=== PATIENT | male | born 1965 | race Two or more races ===

== ENCOUNTER 2018-01-25 05:19 | Day surgery (SDC) | payer MEDICAID ==
[2018-01-21 15:45] LABS: BASOPHILS % (AUTO) 0.2 % (0-1); EOSINOPHILS # (AUTO) 0.2 X10'3 (0-0.9); EOSINOPHILS % (AUTO) 2.5 % (0-6); LYMPHOCYTES # (AUTO) 1.8 X10'3 (1.1-4.8); LYMPHOCYTES % (AUTO) 27.7 % (21-51); MEAN CORPUSCULAR HEMOGLOBIN 31.5 PG (27.0-31.0); MEAN CORPUSCULAR HGB CONC 33.9 % (33.0-36.5); MEAN CORPUSCULAR VOLUME 92.8 FL (78-98); MEAN PLATELET VOLUME 7.9 FL (7.4-10.4); MONOCYTES # (AUTO) 0.4 X10'3 (0-0.9); MONOCYTES % (AUTO) 6.9 % (2-12); NEUTROPHILS % (AUTO) 62.7 % (42-75); PRE OP HEMATOCRIT 44.5 % (42.0-52.0); PRE OP HEMOGLOBIN 15.1 g/dL (14.0-17.9); PRE OP PLATELET COUNT 200 X10'3 (140-440); RED BLOOD COUNT 4.79 X10'6 (4.70-6.10); RED CELL DISTRIBUTION WIDTH 14.5 % (11.5-14.5)
[2018-01-21 16:00] LABS: ALBUMIN 3.6 G/DL (3.4-5.0); ALKALINE PHOSPHATASE 75 IU/L (46-116); BLOOD UREA NITROGEN 17 MG/DL (7-18); BUN/CREATININE RATIO 14.5 (5.4-32.0); CALCIUM 8.7 MG/DL (8.5-10.1); CHLORIDE 105 MMOL/L (99-107); CREATININE 1.17 MG/DL (0.60-1.10); PRE OP ANION GAP 8 (8-16); PRE OP BILIRUB, TOTAL 0.3 MG/DL (0.0-1.0); PRE OP GLUCOSE 128 MG/DL (70-104); PRE OP POTASSIUM 3.7 MMOL/L (3.4-5.1); PRE OP SODIUM 139 MMOL/L (135-145); TOTAL CARBON DIOXIDE 26.2 MMOL/L (24-32); TOTAL PROTEIN 7.3 G/DL (6.4-8.2); eGFR 65 ML/MIN
[2018-01-21 16:03] LABS: PRE OP ALT 121 U/L (30-65); PRE OP AST 117 U/L (10-37)
[2018-01-25] VITALS (16 sets, daily range): BP systolic 112–165; BP diastolic 54–113
[~2018-01-25] VITALS: Ht 180.3 cm; Wt 140.2 kg
[~2018-01-25 05:19] MED LIST: BUSP15TA14 PO; CARV25TA PO; FLUO20CA39 PO; FURO40TA4 PO; LISI-600 PO; POTA20TA19 PO; TRAZ-143 PO; ringers solution, lacted 1,000 ML IV SCH
[2018-01-25] MEDS ORDERED: DOCUMENT DATE & TIME OF BETA-BLOCKER PO ONE (05:30)
[2018-01-25] MEDS ORDERED: cefazolin/dext.iso 2gm/50ml 50 ML IV ONE (05:30)
[2018-01-25] MEDS ORDERED: famotidine 20mg tablet PO ONE (05:30)
[2018-01-25] MEDS ORDERED: LIDOcaine 1% (10mg/ml) 2ml vial ONE (05:54)
[2018-01-25] MEDS ORDERED: BUPIVAcaine/PF 2.5 mg/ml (0.25%) 30ml vial ONE ×2 (07:04→07:25)
[2018-01-25 07:09] LABS: ALANINE AMINOTRANSFERASE 82 U/L (12-78); ALBUMIN 3.6 G/DL (3.4-5.0); ALBUMIN/GLOBULIN RATIO 0.9 (1.1-1.5); ALKALINE PHOSPHATASE 72 IU/L (46-116); ANION GAP 9 (8-16); ASPARTATE AMINO TRANSFERASE 32 U/L (10-37); BILIRUBIN,TOTAL 0.6 MG/DL (0.1-1.0); BLOOD UREA NITROGEN 23 MG/DL (7-18); BUN/CREATININE RATIO 21.9 (5.4-32.0); CHLORIDE 104 MMOL/L (99-107); CREATININE 1.05 MG/DL (0.60-1.10); GLUCOSE 97 MG/DL (70-104); POTASSIUM 3.9 MMOL/L (3.5-5.1); SODIUM 139 MMOL/L (135-145); TOTAL PROTEIN 7.4 G/DL (6.4-8.2); eGFR 74 ML/MIN
[2018-01-25] MEDS ORDERED: BUPIVAcaine 0.5% inj/PF 30 ml vial ONE (07:25)
[2018-01-25] MEDS ORDERED: fentaNYL/PF 50MCG/1 ML 2ML syringe ONE ×4 (07:26→11:26)
[2018-01-25] MEDS ORDERED: midazolam 2 mg/2 ml injection ONE ×2 (07:26)
[2018-01-25] MEDS ORDERED: sevoflurane 250ml liquid IH ONE (07:31)
[2018-01-25] MEDS ORDERED: epiNEPHrine 1 mg/ml inj ONE (07:56)
[2018-01-25] MEDS ORDERED: propofol inj 20 ML IV ONE (07:56)
[2018-01-25] MEDS ORDERED: rocuronium 10mg/ml inj IV ONE (07:56)
[2018-01-25] MEDS ORDERED: LIDOcaine 2% (20mg/ml) 5ml vial ONE (07:56)
[2018-01-25] MEDS ORDERED: dexamethasone sod phosphate 4mg/ml inj. ONE (07:56)
[2018-01-25] MEDS ORDERED: phenylephrine 10mg/ml inj IV ONE (08:00)
[2018-01-25] MEDS ORDERED: ringers solution, lacted 1,000 ML IV SCH (08:49)
[2018-01-25] MEDS ORDERED: proCHLORperazine 10 MG/2 ml inj IV PRN (08:50)
[2018-01-25] MEDS ORDERED: ondansetron/PF 4mg/2ml inj IV PRN ×2 (08:50→11:55)
[2018-01-25] MEDS ORDERED: morphine 4 MG/ML inj SYRINge IV PRN ×4 (08:50→10:46)
[2018-01-25] MEDS ORDERED: meperidine/PF 50mg/ml syringe IV PRN ×2 (08:50)
[2018-01-25] MEDS ORDERED: morphine 10mg/ml inj. IV ONE (09:20)
[2018-01-25] MEDS ORDERED: ondansetron/PF 4mg/2ml inj ONE (09:48)
[2018-01-25] MEDS ORDERED: ePHEDrine 50MG/ML INJ. ONE (09:48)
[2018-01-25] MEDS ORDERED: neostigmine methylsulfate 1 MG/ML 10ml vial ONE (09:48)
[2018-01-25] MEDS ORDERED: glycopyrrolate 0.2mg/ml inj ONE (09:48)
[2018-01-25] MEDS ORDERED: HYDROcodone/acetaminophen 10/325mg tab PO PRN ×3 (10:20→11:55)
[2018-01-25] MEDS: meperidine/PF 50mg/ml syringe IV PRN ×2 (10:23→11:15)
[2018-01-25] MEDS ORDERED: morphine 2 MG/ML inj. syringe IV PRN ×4 (10:41→10:59)
[2018-01-25] MEDS ORDERED: morphine 10mg/ml inj. ONE (10:47)
[2018-01-25] MEDS ORDERED: ketorolac tromethamine 15mg/ml inj. IV ONE (10:55)
[2018-01-25] MEDS ORDERED: fentaNYL/PF 50MCG/1 ML 2ML syringe IV PRN ×2 (11:25)
[2018-01-25] MEDS ORDERED: ketorolac tromethamine 15mg/ml inj. IV PRN (11:55)
[2018-01-25] MEDS ORDERED: bisacodyl 10mg suppository rectal RC PRN (11:55)
[2018-01-25] MEDS ORDERED: morphine/NS 5 mg/ml CADD 50 ML IV SCH (11:55)
[2018-01-25] MEDS ORDERED: CADD PCA waste documentation MC PRN (11:55)
[2018-01-25] MEDS ORDERED: diphenhydrAMINE 25mg capsule PO PRN ×2 (11:55)
[2018-01-25] MEDS ORDERED: acetaminophen 1,000mg/100ml IV 100 ML IV ONE (11:55)
[2018-01-25] MEDS ORDERED: magnesium hydroxide 30ml (MOM) UD suspension PO PRN (11:55)
[2018-01-25] MEDS ORDERED: naloxone 0.4 mg/ml inj IV PRN (11:55)
[2018-01-25] MEDS ORDERED: acetaminophen 325mg tablet PO PRN (11:55)
[2018-01-25] MEDS ORDERED: TRAZ-146 PO (12:12)
[2018-01-25] MEDS ORDERED: sennosides 8.6mg tablet PO SCH (21:00)
== END 2018-01-25 12:45 | disposition home or self-care (01) ==
LOC: PAS 05:19
PROVIDERS: ATTEND Orthopaedic Surgery
DX: M75.122 Complete rotator cuff tear or rupture of left shoulder, not specified as traumatic (principal); M75.22 Bicipital tendinitis, left shoulder; M19.012 Primary osteoarthritis, left shoulder; M65.812 Other synovitis and tenosynovitis, left shoulder; Z79.899 Other long term (current) drug therapy; Z98.890 Other specified postprocedural states
CPT/HCPCS: 29824; 29826; 29827; 29828; 36415; 80053; 85025; A6449; C1713; J0131; J0171; J0690; J1100; J1885; J2001; J2175; J2250; J2270; J2370; J2405; J2704; J2710; J3010; J3490; J7030; J7120; A7000

== ENCOUNTER 2018-07-12 23:46 | Emergency (ER) | payer MEDICAID ==
[~2018-07-12] VITALS: Ht 180.3 cm; Wt 136.0 kg
[~2018-07-12 23:46] MED LIST changes: -TRAZ-143 PO; +TRAZ-219 PO; -ringers solution, lacted 1,000 ML IV SCH
[2018-07-12 23:50] VITALS: BP 146/84
[2018-07-13] MEDS ORDERED: ibuprofen tablet 400 MG TABLET PO ONE (03:20)
[2018-07-13] MEDS ORDERED: IBUP-1986 PO (03:34)
[2018-07-13] MEDS ORDERED: HYDR-569 PO (03:34)
== END 2018-07-13 03:38 | disposition home or self-care (01) ==
LOC: ER 23:48
DX: S90.212A Contusion of left great toe with damage to nail, initial encounter (principal); S90.422A Blister (nonthermal), left great toe, initial encounter; E66.01 Morbid (severe) obesity due to excess calories; Z68.41 Body mass index [BMI] 40.0-44.9, adult; W18.39XA Other fall on same level, initial encounter; Y93.89 Activity, other specified; Y92.69 Other specified industrial and construction area as the place of occurrence of the external cause; Y99.8 Other external cause status
CPT/HCPCS: 82948; 99283

== ENCOUNTER 2020-01-07 11:49 | Inpatient (IN) | payer MEDICAID ==
[~2020-01-07] VITALS: Ht 180.3 cm; Wt 190.4 kg
[~2020-01-07 11:49] MED LIST changes: -BUSP15TA14 PO; +BUSP15TA8 PO; +HYDR-4383 PO; +IBUP-1986 PO; -TRAZ-219 PO
[2020-01-07 12:21] LABS: BASOPHILS # (AUTO) 0.1 X10'3 (0-0.2); BASOPHILS % (AUTO) 0.8 % (0-1); EOSINOPHILS # (AUTO) 0.1 X10'3 (0-0.9); EOSINOPHILS % (AUTO) 0.8 % (0-6); HEMATOCRIT 47.7 % (42.0-52.0); HEMOGLOBIN 16.1 g/dl (14.0-17.9); LYMPHOCYTES # (AUTO) 1.6 X10'3 (1.1-4.8); LYMPHOCYTES % (AUTO) 22.4 % (21-51); MEAN CORPUSCULAR HEMOGLOBIN 31.1 PG (27.0-31.0); MEAN CORPUSCULAR HGB CONC 33.8 g/dL (33.0-36.5); MEAN CORPUSCULAR VOLUME 91.9 FL (78-98); MEAN PLATELET VOLUME 8.1 FL (7.4-10.4); MONOCYTES # (AUTO) 0.5 X10'3 (0-0.9); MONOCYTES % (AUTO) 6.8 % (2-12); NEUTROPHILS # (AUTO) 5.1 X10'3 (1.8-7.7); NEUTROPHILS % (AUTO) 69.2 % (42-75); PLATELET COUNT 217 X10'3 (140-440); RED BLOOD COUNT 5.19 X10'6 (4.70-6.10); RED CELL DISTRIBUTION WIDTH 14.1 % (11.5-14.5); WHITE BLOOD COUNT 7.3 X10'3 (4.5-11.0)
[2020-01-07 12:36] LABS: ALANINE AMINOTRANSFERASE 60 U/L (12-78); ALKALINE PHOSPHATASE 75 IU/L (46-116); ANION GAP 11 (8-16); BILIRUBIN,TOTAL 0.5 MG/DL (0.1-1.0); BLOOD UREA NITROGEN 18 MG/DL (7-18); BUN/CREATININE RATIO 16.8 (5.4-32.0); CALCIUM 8.8 MG/DL (8.5-10.1); CHLORIDE 105 MMOL/L (99-107); CREATININE 1.07 MG/DL (0.60-1.10); GLUCOSE 99 MG/DL (70-104); SODIUM 140 MMOL/L (135-145); TOTAL CARBON DIOXIDE 23.6 MMOL/L (24-32); eGFR 72 ML/MIN
[2020-01-07 12:39] LABS: ASPARTATE AMINO TRANSFERASE 36 U/L (10-37); POTASSIUM 4.1 MMOL/L (3.5-5.1)
[2020-01-07] MEDS ORDERED: DICL75TA5 PO (15:28)
[2020-01-07] MEDS ORDERED: TRAZ-256 PO (15:28)
[2020-01-07 16:39] LABS: D-DIMER 0.33 MG/L FEU (0-0.50)
[2020-01-07] MEDS ORDERED: HYDROcodone/acetaminophen 5mg/325mg tablet PO PRN (17:05)
[2020-01-07] MEDS ORDERED: metoprolol tartrate 1mg/ml inj IV PRN (17:05)
[2020-01-07] MEDS ORDERED: nitroGLYCERIN 0.4mg SUBLingual tab SL PRN (17:05)
[2020-01-07] MEDS ORDERED: magnesium 4gm in 100ml NS 100 ML IV PRN (17:05)
[2020-01-07] MEDS ORDERED: morphine 2 MG/ML inj. syringe IV PRN ×2 (17:05)
[2020-01-07] MEDS ORDERED: magnesium 2GM in 50ml NS 50 ML IV PRN (17:05)
[2020-01-07] MEDS ORDERED: potassium Cl 20 mEq SR tablet PO PRN ×2 (17:05)
[2020-01-07] MEDS ORDERED: acetaminophen 325mg tablet PO PRN ×2 (17:05)
[2020-01-07] MEDS ORDERED: HYDROcodone/acetaminophen 10/325mg tab PO PRN (17:05)
[2020-01-07] MEDS ORDERED: ondansetron/PF 4mg/2ml inj IV PRN (17:05)
[2020-01-07] MEDS ORDERED: regadenoson 0.4mg/5ml syringe IV PRN (17:05)
[2020-01-07] MEDS ORDERED: aminophylline 250mg/10ml inj. IV PRN (17:05)
[2020-01-07] MEDS ORDERED: potassium CL 10mEq/100ml bag 100 ML IV PRN ×2 (17:05)
[2020-01-07] MEDS ORDERED: magnesium Cl slow-release 64mg tablet PO PRN (17:05)
[2020-01-07 17:16] LABS: URINE AMPHETAMINE SCREEN NEGATIVE (Neg); URINE BARBITUATE SCREEN NEGATIVE (Neg); URINE BENZODIAZEPINES SCREEN NEGATIVE (Neg); URINE CANNABINOID SCREEN NEGATIVE (Neg); URINE COCAINE SCREEN NEGATIVE (Neg); URINE METHADONE SCREEN NEGATIVE (Neg); URINE OPIATE SCREEN NEGATIVE (Neg); URINE PHENCYCLIDINE SCREEN NEGATIVE (Neg)
[2020-01-07] MEDS: normal saline 1000ml 1,000 ML IV SCH (18:02)
[2020-01-07] MEDS ORDERED: NITR0.4T48 SL (18:19)
[2020-01-07] MEDS: docusate sod 100mg capsule PO SCH (20:00)
[2020-01-07] MEDS: K and/or MAG REPLACEMENT MC SCH (20:00)
[2020-01-07] MEDS: heparin, porcine 5000 units/ml vial SQ SCH (20:00)
[2020-01-07] MEDS: carVEDilol 12.5mg tablet PO SCH (20:42)
[2020-01-07] MEDS: pantoprazole 40mg Tablet.DR PO SCH (20:42)
[2020-01-07] MEDS: lisinopril 20mg tablet PO SCH (20:43)
--- NOTE | 2020-01-07 20:51 | NUR ---
Patient in room ED 13. I have received report from Rere BENAVIDEZ and had the opportunity to ask questions and assume patient care.
[2020-01-07 20:54] VITALS: BP 145/85
[2020-01-07] MEDS ORDERED: temazepam 15mg capsule PO PRN (21:00)
[2020-01-07] MEDS: traZODone 50mg tablet PO SCH (21:07)
[2020-01-07 22:30] VITALS: BP 101/58
[2020-01-08] VITALS (14 sets, daily range): BP systolic 115–173; BP diastolic 59–99
[2020-01-08] MEDS: normal saline 1000ml 1,000 ML IV SCH ×3 (03:07→21:30)
--- NOTE | 2020-01-08 06:04 | NUR ---
Problems reprioritized. Patient report given, questions answered & plan of care reviewed with Natalie BENAVIDEZ.
--- NOTE | 2020-01-08 06:04 | NUR ---
Patient in room PCU 3012. I have received report from PRAMOD Mcdonnell and had the opportunity to ask questions and assume patient care. Patient is lying on his right side sleeping at this time with chest rise and fall present. Will continue to monitor.
[2020-01-08 06:11] LABS: BASOPHILS % (AUTO) 0.5 % (0-1); EOSINOPHILS # (AUTO) 0.1 X10'3 (0-0.9); EOSINOPHILS % (AUTO) 1.2 % (0-6); HEMATOCRIT 44.8 % (42.0-52.0); HEMOGLOBIN 15.4 g/dl (14.0-17.9); LYMPHOCYTES # (AUTO) 1.6 X10'3 (1.1-4.8); LYMPHOCYTES % (AUTO) 24.8 % (21-51); MEAN CORPUSCULAR HEMOGLOBIN 31.4 PG (27.0-31.0); MEAN CORPUSCULAR HGB CONC 34.5 g/dL (33.0-36.5); MEAN CORPUSCULAR VOLUME 91.3 FL (78-98); MEAN PLATELET VOLUME 8.3 FL (7.4-10.4); MONOCYTES # (AUTO) 0.5 X10'3 (0-0.9); MONOCYTES % (AUTO) 7.6 % (2-12); NEUTROPHILS # (AUTO) 4.1 X10'3 (1.8-7.7); NEUTROPHILS % (AUTO) 65.9 % (42-75); PLATELET COUNT 192 X10'3 (140-440); RED BLOOD COUNT 4.91 X10'6 (4.70-6.10); RED CELL DISTRIBUTION WIDTH 14.1 % (11.5-14.5); WHITE BLOOD COUNT 6.3 X10'3 (4.5-11.0)
[2020-01-08 06:18] LABS: ALANINE AMINOTRANSFERASE 51 U/L (12-78); ALBUMIN 3.5 G/DL (3.4-5.0); ALKALINE PHOSPHATASE 67 IU/L (46-116); ANION GAP 10 (8-16); ASPARTATE AMINO TRANSFERASE 25 U/L (10-37); BILIRUBIN,TOTAL 0.6 MG/DL (0.1-1.0); BLOOD UREA NITROGEN 20 MG/DL (7-18); BUN/CREATININE RATIO 21.3 (5.4-32.0); CALCIUM 8.4 MG/DL (8.5-10.1); CHLORIDE 107 MMOL/L (99-107); CHOL/HDL RATIO 5.4 (0.00-4.99); CHOLESTEROL 179 MG/DL (0-200); CREATININE 0.94 MG/DL (0.60-1.10); GLUCOSE 109 MG/DL (70-104); HDL CHOLESTEROL 33 MG/DL (35-60); LDL CHOLESTEROL 132 MG/DL (50-100); MAGNESIUM 1.9 MG/DL (1.5-2.4); POTASSIUM 3.7 MMOL/L (3.5-5.1); SODIUM 142 MMOL/L (135-145); TOTAL CARBON DIOXIDE 25.3 MMOL/L (24-32); TOTAL PROTEIN 7.1 G/DL (6.4-8.2); TRIGLYCERIDES 84 MG/DL (20-135); eGFR 84 ML/MIN
[2020-01-08] MEDS: lisinopril 20mg tablet PO SCH ×2 (07:19→19:26)
[2020-01-08] MEDS: FLUoxetine 20mg capsule PO SCH (07:19)
[2020-01-08] MEDS: pantoprazole 40mg Tablet.DR PO SCH ×2 (07:19→19:26)
[2020-01-08] MEDS: carVEDilol 12.5mg tablet PO SCH ×2 (07:20→19:26)
[2020-01-08] MEDS: heparin, porcine 5000 units/ml vial SQ SCH ×2 (08:00→19:28)
[2020-01-08] MEDS: K and/or MAG REPLACEMENT MC SCH ×2 (08:00→19:28)
[2020-01-08] MEDS: docusate sod 100mg capsule PO SCH ×2 (08:00→19:28)
--- NOTE | 2020-01-08 11:00 | NUR ---
Patient is down in nuc med therefore his v/s were not taken.
--- NOTE | 2020-01-08 18:30 | NUR ---
Patient in room PCU 3012. I have received report from KEVYN BENAVIDEZ and had the opportunity to ask questions and assume patient care.
[2020-01-08] MEDS: traZODone 50mg tablet PO SCH (20:05)
[2020-01-08] MEDS ORDERED: PANT40TA4 PO (22:26)
--- NOTE | 2020-01-08 22:33 | NUR ---
Dr. Godinez ordered to DC tele and patient will be discharged in the morning.
--- NOTE | 2020-01-08 22:34 | NUR ---
patient refused 0200 vitals
--- NOTE | 2020-01-08 22:36 | NUR ---
Patient requested to leave in the morning. Tele DC'd no 0200 vitals, fluids DC'd
--- NOTE | 2020-01-09 05:58 | NUR ---
Problems reprioritized. Patient report given, questions answered & plan of care reviewed with Ricarda BENAVIDEZ.
[2020-01-09 06:00] VITALS: BP 156/98
[2020-01-09 06:22] LABS: BASOPHILS % (AUTO) 0.4 % (0-1); EOSINOPHILS # (AUTO) 0.1 X10'3 (0-0.9); EOSINOPHILS % (AUTO) 1.6 % (0-6); HEMATOCRIT 47.1 % (42.0-52.0); HEMOGLOBIN 15.9 g/dl (14.0-17.9); LYMPHOCYTES # (AUTO) 1.4 X10'3 (1.1-4.8); LYMPHOCYTES % (AUTO) 22.5 % (21-51); MEAN CORPUSCULAR HEMOGLOBIN 31.1 PG (27.0-31.0); MEAN CORPUSCULAR HGB CONC 33.6 g/dL (33.0-36.5); MEAN CORPUSCULAR VOLUME 92.4 FL (78-98); MEAN PLATELET VOLUME 8.1 FL (7.4-10.4); MONOCYTES # (AUTO) 0.6 X10'3 (0-0.9); NEUTROPHILS # (AUTO) 4.1 X10'3 (1.8-7.7); NEUTROPHILS % (AUTO) 66.5 % (42-75); PLATELET COUNT 193 X10'3 (140-440); RED CELL DISTRIBUTION WIDTH 14.1 % (11.5-14.5); WHITE BLOOD COUNT 6.2 X10'3 (4.5-11.0)
[2020-01-09 06:23] LABS: ALANINE AMINOTRANSFERASE 47 U/L (12-78); ALBUMIN 3.7 G/DL (3.4-5.0); ALKALINE PHOSPHATASE 68 IU/L (46-116); ANION GAP 6 (8-16); ASPARTATE AMINO TRANSFERASE 21 U/L (10-37); BILIRUBIN,TOTAL 0.6 MG/DL (0.1-1.0); BLOOD UREA NITROGEN 15 MG/DL (7-18); BUN/CREATININE RATIO 13.9 (5.4-32.0); CALCIUM 9.4 MG/DL (8.5-10.1); CHLORIDE 107 MMOL/L (99-107); CREATININE 1.08 MG/DL (0.60-1.10); GLUCOSE 102 MG/DL (70-104); POTASSIUM 4.7 MMOL/L (3.5-5.1); SODIUM 143 MMOL/L (135-145); TOTAL CARBON DIOXIDE 30.2 MMOL/L (24-32); TOTAL PROTEIN 7.5 G/DL (6.4-8.2); eGFR 71 ML/MIN
--- NOTE | 2020-01-09 06:25 | NUR ---
Patient in room PCU 3012. I have received report from PRAMOD chavez and had the opportunity to ask questions and assume patient care.
[2020-01-09] MEDS: carVEDilol 12.5mg tablet PO SCH (07:34)
[2020-01-09 07:35] VITALS: BP_SYST 128
[2020-01-09] MEDS: FLUoxetine 20mg capsule PO SCH (07:35)
[2020-01-09] MEDS: pantoprazole 40mg Tablet.DR PO SCH (07:35)
[2020-01-09] MEDS: lisinopril 20mg tablet PO SCH (07:35)
[2020-01-09] MEDS: heparin, porcine 5000 units/ml vial SQ SCH (08:00)
[2020-01-09] MEDS: K and/or MAG REPLACEMENT MC SCH (08:00)
[2020-01-09] MEDS: docusate sod 100mg capsule PO SCH (08:00)
[2020-01-09] MEDS: normal saline 1000ml 1,000 ML IV SCH (09:05)
== END 2020-01-09 09:45 | disposition home or self-care (01) | DRG 241 ==
LOC: ER 11:49 → ED HOLD 17:05 → PCU 3S 20:54
PROVIDERS: ADMIT Internal Medicine; ATTEND Internal Medicine
PROC: 4A02XM4 Measurement of Cardiac Total Activity, External Approach (ICD-10-PCS; principal; 2020-01-08)
PROC: 3E033HZ Introduction of Radioactive Substance into Peripheral Vein, Percutaneous Approach (ICD-10-PCS; 2020-01-08)
DX: K29.70 Gastritis, unspecified, without bleeding (principal); I11.0 Hypertensive heart disease with heart failure; E66.01 Morbid (severe) obesity due to excess calories; I50.9 Heart failure, unspecified; I25.110 Atherosclerotic heart disease of native coronary artery with unstable angina pectoris; Z68.43 Body mass index [BMI] 50.0-59.9, adult; M54.9 Dorsalgia, unspecified; K21.9 Gastro-esophageal reflux disease without esophagitis; E78.5 Hyperlipidemia, unspecified; F32.9 Major depressive disorder, single episode, unspecified; F41.9 Anxiety disorder, unspecified; G89.29 Other chronic pain; T39.395A Adverse effect of other nonsteroidal anti-inflammatory drugs [NSAID], initial encounter; Z95.5 Presence of coronary angioplasty implant and graft; Y92.89 Other specified places as the place of occurrence of the external cause
CPT/HCPCS: 36415; 71045; 78452; 80053; 80061; 80305; 83735; 83880; 84484; 85025; 85379; 87081; 93005; 93017; 93306; 99285; A9500; G0378; J2785; J7030

== ENCOUNTER 2022-01-27 17:06 | Emergency (ER) | payer MEDICAID ==
[~2022-01-27] VITALS: Ht 180.3 cm; Wt 136.0 kg
[~2022-01-27 17:06] MED LIST changes: -BUSP15TA8 PO; -FURO40TA4 PO; -HYDR-4383 PO; -IBUP-1986 PO; -LISI-600 PO; +LISI20TA28 PO; +NITR0.4T48 SL; +PANT40TA54 PO; -POTA20TA19 PO; +TRAZ-256 PO
[2022-01-27 17:15] VITALS: BP 118/81
--- NOTE | 2022-01-27 18:36 | NUR ---
resume care from morning RN
[2022-01-27] MEDS ORDERED: HYDROcodone/acetaminophen 10/325mg tab PO ONE (18:50)
[2022-01-27] MEDS ORDERED: HYDR-3965 PO (18:56)
== END 2022-01-27 19:24 | disposition home or self-care (01) ==
LOC: ER 17:06
DX: M25.561 Pain in right knee (principal); I25.10 Atherosclerotic heart disease of native coronary artery without angina pectoris; F41.9 Anxiety disorder, unspecified; F32.A Depression, unspecified; Z98.890 Other specified postprocedural states; Z79.899 Other long term (current) drug therapy
CPT/HCPCS: 29505; 73564; 99283

== ENCOUNTER 2022-03-14 09:41 | Inpatient (IN) | payer MEDICAID ==
[2022-03-07 11:47] LABS: BASOPHILS % (AUTO) 0.6 % (0-1); EOSINOPHILS # (AUTO) 0.1 X10'3 (0-0.9); EOSINOPHILS % (AUTO) 1.8 % (0-6); LYMPHOCYTES # (AUTO) 1.7 X10'3 (1.1-4.8); LYMPHOCYTES % (AUTO) 24.4 % (21-51); MEAN CORPUSCULAR HEMOGLOBIN 31.2 PG (27.0-31.0); MEAN CORPUSCULAR HGB CONC 33.5 g/dL (33.0-36.5); MEAN PLATELET VOLUME 8.1 FL (7.4-10.4); MONOCYTES # (AUTO) 0.5 X10'3 (0-0.9); MONOCYTES % (AUTO) 7.5 % (2-12); NEUTROPHILS # (AUTO) 4.7 X10'3 (1.8-7.7); NEUTROPHILS % (AUTO) 65.7 % (42-75); PRE OP HEMATOCRIT 41.6 % (42.0-52.0); PRE OP PLATELET COUNT 195 X10'3 (140-440); RED BLOOD COUNT 4.48 X10'6 (4.70-6.10); RED CELL DISTRIBUTION WIDTH 13.9 % (11.5-14.5)
[2022-03-07 11:58] LABS: ALBUMIN 3.6 G/DL (3.4-5.0); ALKALINE PHOSPHATASE 79 IU/L (46-116); BLOOD UREA NITROGEN 18 MG/DL (7-18); CALCIUM 9.1 MG/DL (8.5-10.1); CHLORIDE 103 MMOL/L (99-107); PRE OP ALT 45 U/L (30-65); PRE OP ANION GAP 10 (8-16); PRE OP AST 23 U/L (10-37); PRE OP BILIRUB, TOTAL 0.4 MG/DL (0.0-1.0); PRE OP GLUCOSE 138 MG/DL (70-104); PRE OP POTASSIUM 4.1 MMOL/L (3.4-5.1); PRE OP SODIUM 138 MMOL/L (135-145); TOTAL CARBON DIOXIDE 24.8 MMOL/L (24-32); TOTAL PROTEIN 7.3 G/DL (6.4-8.2); eGFR 77 ML/MIN
[~2022-03-14] VITALS: Ht 180.3 cm; Wt 141.9 kg
[2022-03-14] VITALS (20 sets, daily range): BP systolic 115–166; BP diastolic 59–99
[~2022-03-14 09:41] MED LIST changes: +AMLO5TAB16 PO; +ATOR40TA71 PO; +DOCUMENT DATE & TIME OF BETA-BLOCKER PO ONE; -FLUO20CA39 PO; -PANT40TA54 PO; +SPIR25TA5 PO; -TRAZ-256 PO; +acetaminophen 325mg tablet PO ONE; +ceFAZolin inj. 3,000 MG in normal saline 100ml IV soln 100 ML IV ONE; +celeCOXIB 100mg capsule PO ONE; +famotidine 20mg tablet PO ONE; +gabapentin 300mg capsule PO ONE; +metoclopramide 5 mg/ml inj IV ONE; +oxyCODONE SR 10mg (sust. release) tab -2 tabs (20mg) PO ONE; +ringers solution, lacted 1,000 ML IV SCH; +tranexamic acid inj. 1,000 MG in normal saline 100ml IV soln 90 ML IV ONE; +vancomycin 1,500 MG in NS 300ml IV soln IV ONE
--- NOTE | 2022-03-14 10:00 | NUR ---
patient prepped for surgery on right knee. Pt stated he watched the dvd on joint replacement. He used the murpurocin ointment in his nose for 5 days and showered with the hibiclens soap for 5 days which included this mornings shower. pt has a history of chf, no pedal edema noted. posterior pedal pulses palpable and marked. sensation in lower extremities intact. pt is able to move all 4 extremities, pt ambulates without difficulty
[2022-03-14] MEDS ORDERED: meperidine/PF 25mg/ml syringe IV PRN ×3 (11:10)
[2022-03-14] MEDS ORDERED: morphine 4 MG/ML inj SYRINge IV PRN (11:10)
[2022-03-14] MEDS ORDERED: proCHLORperazine 10 MG/2 ml inj IV PRN (11:10)
[2022-03-14] MEDS ORDERED: ringers solution, lacted 1,000 ML IV SCH (11:10)
[2022-03-14] MEDS ORDERED: morphine 2 MG/ML inj. syringe IV PRN (11:10)
[2022-03-14] MEDS ORDERED: ondansetron/PF 4mg/2ml inj IV PRN ×2 (11:10→14:55)
[2022-03-14] MEDS ORDERED: ketorolac trometh. 30mg/ml inj. ONE (12:19)
[2022-03-14] MEDS ORDERED: ROPIVAcaine 0.5% (5mg/ml) 30ml vial ONE ×2 (12:20→13:24)
[2022-03-14] MEDS ORDERED: epiNEPHrine 1 mg/ml inj ONE (12:20)
[2022-03-14] MEDS ORDERED: cloNIDine hcl/PF 100mcg/ml inj ONE (12:20)
[2022-03-14] MEDS ORDERED: vancomycin 1,000mg inj ONE (12:20)
--- NOTE | 2022-03-14 12:26 | NUR ---
PT HAS HIS CPAP MACHINE WITH HIM, HE STATES HE USES IT AT NIGHT. EDUCATED PT ON THE IMPORTANCE OF USING IT AFTER ANESTHESIA.
[2022-03-14] MEDS ORDERED: sevoflurane 250ml liquid IH ONE (12:42)
--- NOTE | 2022-03-14 12:46 | NUR ---
PATIENT TAKE FROM [facility] TO THE OPERATING ROOM BY NEETA BENAVIDEZ
[2022-03-14] MEDS ORDERED: fentaNYL/PF 50MCG/1 ML 2ML syringe ONE (12:49)
[2022-03-14] MEDS ORDERED: MIDAZolam 1mg/ml 10ml vial ONE (12:49)
[2022-03-14] MEDS ORDERED: LIDOcaine 2% (20mg/ml) 5ml vial ONE (13:24)
[2022-03-14] MEDS ORDERED: propofol inj 20 ML IV ONE (13:24)
[2022-03-14] MEDS ORDERED: rocuronium 10mg/ml inj IV ONE (13:30)
[2022-03-14] MEDS ORDERED: ondansetron/PF 4mg/2ml inj ONE (13:30)
[2022-03-14] MEDS ORDERED: fentaNYL /PF 50mcg/ml 5ml ampule ONE (14:36)
[2022-03-14] MEDS ORDERED: acetaminophen 1,000mg/100ml IV 100 ML IV ONE (14:37)
[2022-03-14] MEDS ORDERED: magnesium hydroxide 30ml (MOM) UD suspension PO PRN (14:55)
[2022-03-14] MEDS ORDERED: bisacodyl 10mg suppository rectal RC PRN (14:55)
[2022-03-14] MEDS ORDERED: HYDROmorphone 1 mg/ml syringe IV PRN (14:55)
[2022-03-14] MEDS ORDERED: acetaminophen 325mg tablet PO PRN (14:55)
[2022-03-14] MEDS ORDERED: naloxone 0.4 mg/ml inj IV PRN (14:55)
[2022-03-14] MEDS ORDERED: diphenhydrAMINE 25mg capsule PO PRN ×2 (14:55)
[2022-03-14] MEDS ORDERED: oxyCODONE/APAP 10/325mg tablet PO PRN (14:55)
--- NOTE | 2022-03-14 15:02 | NUR ---
Received from OR via SURGICAL BED , accompanied by Anesthesiologist DR PATE and report given by Anesthesiolgist. PT AROUSABLE, SEEMS TO GRIMACE IN PAIN. IV TO LEFT WRIST PATENT. KNEE WRAP TO RIGHT KNEE W/ POWDER PACK IN PLACE. ADRIANA NEDA IN TACT. STRONG PALPABLE PULSE TO RIGHT FOOT. SCD'S ON.
[2022-03-14] MEDS: ceFAZolin/D5W- 1GM premix 50 ML IV SCH (16:00)
--- NOTE | 2022-03-14 17:02 | NUR ---
pt to 4009 a via surgical bed. report given to Alessandra BENAVIDEZ. Pt alert and oriented, states pain is tolerable and states readiness for xfer to floor. Pt joking, resting and tolerating juice and water. Drsg to right knee remains CDI, pt has good sensation bilaterally now and is able to move feet and toes bilaterally. Iv patent. 1 bag of belongings to room 4009a w/ phone. Cpap to room in black bag. Pt was bladder scanned prior to x josh to floor per anesthesiologist request. Pt denies any urge to void and bladder scan only revealed 7 ml of urine. Pt was oriented to room and call light. bed low, rails up x 2, bed locked. pt started on post op vitals per protocol.
[2022-03-14] MEDS ORDERED: tranexamic acid inj. 1,400 MG in normal saline 100ml IV soln 86 ML IV ONE (18:00)
--- NOTE | 2022-03-14 18:20 | NUR ---
Report to Juana BENAVIDEZ
[2022-03-14] MEDS: cefazolin/dext.iso 2gm/100ml 100 ML IV SCH (18:45)
[2022-03-14] MEDS: oxyCODONE/APAP 10/325mg tablet PO PRN ×2 (18:45→23:07)
[2022-03-14] MEDS: potassium cl 20mEq in 1/2 NS 1,000 ML IV SCH ×2 (18:46→22:55)
[2022-03-14] MEDS: HYDROmorphone inj. 0.5 MG/0.5 ML DISP.SYRIN IV PRN (20:51)
[2022-03-14] MEDS: spironolactone 25 MG tablet PO SCH (20:52)
[2022-03-14] MEDS: gabapentin 300mg capsule PO SCH (20:52)
[2022-03-14] MEDS: carVEDilol 12.5mg tablet PO SCH (20:53)
[2022-03-14] MEDS: ascorbic acid 500mg tablet PO SCH (20:53)
[2022-03-14] MEDS: lisinopril 20mg tablet PO SCH (20:53)
[2022-03-14] MEDS ORDERED: sennosides 8.6mg tablet PO SCH (21:00)
[2022-03-14] MEDS ORDERED: amLODIPine 5mg tablet PO SCH (21:00)
[2022-03-14] MEDS ORDERED: atorvastatin 20mg tablet PO SCH (21:00)
[2022-03-14] MEDS ORDERED: vancomycin inj 1,750 MG in normal saline 500ml IV soln 350 ML IV ONE (23:55)
[2022-03-15] MEDS: cefazolin/dext.iso 2gm/100ml 100 ML IV SCH (01:11)
[2022-03-15] MEDS: ceFAZolin/D5W- 1GM premix 50 ML IV SCH (01:11)
[2022-03-15 02:00] VITALS: BP 113/68
[2022-03-15] MEDS: oxyCODONE/APAP 10/325mg tablet PO PRN ×2 (03:29→08:42)
[2022-03-15] MEDS: HYDROmorphone inj. 0.5 MG/0.5 ML DISP.SYRIN IV PRN (05:41)
[2022-03-15 06:00] VITALS: BP 140/81
[2022-03-15 06:09] LABS: BASOPHILS % (AUTO) 0.1 % (0-1); EOSINOPHILS % (AUTO) 0 % (0-6); HEMATOCRIT 39.5 % (42.0-52.0); HEMOGLOBIN 13.1 g/dl (14.0-17.9); LYMPHOCYTES # (AUTO) 0.8 X10'3 (1.1-4.8); LYMPHOCYTES % (AUTO) 6.8 % (21-51); MEAN CORPUSCULAR HEMOGLOBIN 31.3 PG (27.0-31.0); MEAN CORPUSCULAR HGB CONC 33.3 g/dL (33.0-36.5); MEAN PLATELET VOLUME 8.3 FL (7.4-10.4); MONOCYTES # (AUTO) 0.3 X10'3 (0-0.9); MONOCYTES % (AUTO) 2.5 % (2-12); NEUTROPHILS # (AUTO) 11.2 X10'3 (1.8-7.7); NEUTROPHILS % (AUTO) 90.6 % (42-75); PLATELET COUNT 183 X10'3 (140-440); RED CELL DISTRIBUTION WIDTH 13.8 % (11.5-14.5); WHITE BLOOD COUNT 12.4 X10'3 (4.5-11.0)
[2022-03-15 06:12] LABS: ANION GAP 10 (8-16); CHLORIDE 102 MMOL/L (99-107); POTASSIUM 4.3 MMOL/L (3.5-5.1); SODIUM 135 MMOL/L (135-145); TOTAL CARBON DIOXIDE 22.9 MMOL/L (24-32)
[2022-03-15] MEDS ORDERED: multivitamins, therapeutics tablet PO SCH (08:00)
[2022-03-15] MEDS ORDERED: aspirin 325mg tablet PO SCH (08:30)
[2022-03-15] MEDS: spironolactone 25 MG tablet PO SCH (08:38)
[2022-03-15] MEDS: gabapentin 300mg capsule PO SCH (08:39)
[2022-03-15] MEDS: carVEDilol 12.5mg tablet PO SCH (08:39)
[2022-03-15 08:40] VITALS: BP_SYST 109
[2022-03-15] MEDS: ascorbic acid 500mg tablet PO SCH (08:40)
[2022-03-15] MEDS: lisinopril 20mg tablet PO SCH (08:40)
--- NOTE | 2022-03-15 09:41 | NUR ---
Joint surgery consult: Pt s/p R knee surgery this admit per EMR. Pt seen by CADEN for written/verbal high protein diet ed w/ RD contact information provided. CADEN encouraged pt to contact dietitian's office if further questions/concerns. Addendum: 03/15/22 at [address] Amended: Links added.
[2022-03-15] MEDS ORDERED: celeCOXIB 100mg capsule PO SCH (20:00)
== END 2022-03-15 10:45 | disposition home or self-care (01) | DRG 326 ==
LOC: PAS IN 09:41 → EDSTATUS 11:30 → ORTHO 4S 17:15
PROVIDERS: ADMIT Orthopaedic Surgery; ATTEND Orthopaedic Surgery
PROC: 3E0T3BZ Introduction of Anesthetic Agent into Peripheral Nerves and Plexi, Percutaneous Approach (ICD-10-PCS; 2022-03-14)
PROC: 3E0T33Z Introduction of Anti-inflammatory into Peripheral Nerves and Plexi, Percutaneous Approach (ICD-10-PCS; 2022-03-14)
PROC: 0SRC0J9 Replacement of Right Knee Joint with Synthetic Substitute, Cemented, Open Approach (ICD-10-PCS; principal; 2022-03-14 12:40)
DX: M17.11 Unilateral primary osteoarthritis, right knee (principal); E66.9 Obesity, unspecified; G47.30 Sleep apnea, unspecified; I10 Essential (primary) hypertension; Z79.899 Other long term (current) drug therapy; Z68.41 Body mass index [BMI] 40.0-44.9, adult
CPT/HCPCS: 36415; 73560; 80051; 80053; 82948; 85025; 86885; 86900; 86901; 87081; 97110; 97161; 97530; A4215; A7000; C1713; C1776; G0378; J0131; J0171; J0690; J0735; J1170; J1885; J2175; J2250; J2270; J2405; J2704; J2765; J2795; J3010; J3370; J3480; J3490; J7040; J7120; U0003; U0005

== ENCOUNTER 2024-05-09 06:26 | Day surgery (SDC) | payer MEDICAID ==
[~2024-05-09] VITALS: Ht 180.3 cm; Wt 128.6 kg
[2024-05-09] VITALS (10 sets, daily range): BP systolic 95–122; BP diastolic 63–75; PULSE 82–106; RESP 16; TEMP 98.4; O2SAT 92–98
[~2024-05-09 06:26] MED LIST changes: -DOCUMENT DATE & TIME OF BETA-BLOCKER PO ONE; -acetaminophen 325mg tablet PO ONE; -ceFAZolin inj. 3,000 MG in normal saline 100ml IV soln 100 ML IV ONE; -celeCOXIB 100mg capsule PO ONE; -famotidine 20mg tablet PO ONE; -gabapentin 300mg capsule PO ONE; -metoclopramide 5 mg/ml inj IV ONE; -oxyCODONE SR 10mg (sust. release) tab -2 tabs (20mg) PO ONE; -ringers solution, lacted 1,000 ML IV SCH; -tranexamic acid inj. 1,000 MG in normal saline 100ml IV soln 90 ML IV ONE; -vancomycin 1,500 MG in NS 300ml IV soln IV ONE
[2024-05-09] MEDS ORDERED: FAMO20TA8 PO (06:52)
[2024-05-09] MEDS ORDERED: EMPA10TA PO (06:52)
[2024-05-09] MEDS ORDERED: SACU1TAB7 PO (06:52)
[2024-05-09] MEDS ORDERED: SEMA0.253 SQ (06:52)
[2024-05-09] MEDS ORDERED: CARV25TA2 PO (06:52)
[2024-05-09 07:26] LABS: BASOPHILS % (AUTO) 0.5 % (0-1); EOSINOPHILS # (AUTO) 0.1 X10'3 (0-0.9); EOSINOPHILS % (AUTO) 1.3 % (0-6); HEMATOCRIT 47.7 % (42.0-52.0); HEMOGLOBIN 16.1 g/dl (14.0-17.9); LYMPHOCYTES # (AUTO) 1.6 X10'3 (1.1-4.8); LYMPHOCYTES % (AUTO) 26.8 % (21-51); MEAN CORPUSCULAR HGB CONC 33.8 g/dL (33.0-36.5); MEAN CORPUSCULAR VOLUME 94.6 FL (78-98); MEAN PLATELET VOLUME 8.5 FL (7.4-10.4); MONOCYTES # (AUTO) 0.6 X10'3 (0-0.9); MONOCYTES % (AUTO) 9.3 % (2-12); NEUTROPHILS # (AUTO) 3.8 X10'3 (1.8-7.7); NEUTROPHILS % (AUTO) 62.1 % (42-75); PLATELET COUNT 169 X10'3 (140-440); RED BLOOD COUNT 5.04 X10'6 (4.70-6.10); RED CELL DISTRIBUTION WIDTH 14.5 % (11.5-14.5); WHITE BLOOD COUNT 6.1 X10'3 (4.5-11.0)
[2024-05-09 07:32] LABS: PROTHROMBIN TIME 10.8 SECONDS (9.0-12.0)
[2024-05-09 07:33] LABS: ALBUMIN 3.4 G/DL (3.4-5.0); ANION GAP 11 (8-16); BLOOD UREA NITROGEN 21 MG/DL (7-18); BUN/CREATININE RATIO 21.2 (10.0-20.0); CALCIUM 8.7 MG/DL (8.5-10.1); CHLORIDE 105 MMOL/L (99-107); CREATININE 0.99 MG/DL (0.60-1.10); GLUCOSE 100 MG/DL (70-104); MAGNESIUM 2.1 MG/DL (1.5-2.4); POTASSIUM 3.6 MMOL/L (3.5-5.1); SODIUM 137 MMOL/L (135-145); TOTAL CARBON DIOXIDE 20.7 MMOL/L (24-32); eCRCL 86 ML/MIN; eGFR 77 ML/MIN
[2024-05-09] MEDS: diphenhydrAMINE 25mg capsule PO PRN (07:40)
[2024-05-09] MEDS: sodium bicarbonate 1meq/ml syr 150 ML in dextrose 5%-water 1,000 ML IV ONE (07:40)
[2024-05-09] MEDS: normal saline 1,000 ML IV SCH (07:42)
[2024-05-09] MEDS ORDERED: heparin 1,000unit/ml 10ml vial 10 ML ONE (08:53)
[2024-05-09] MEDS ORDERED: iohexol 350MG/ML 100ml bottle IV ONE ×2 (08:53→10:03)
[2024-05-09] MEDS ORDERED: LIDOcaine 1% (10mg/ml) 2ml vial ONE (08:53)
[2024-05-09] MEDS ORDERED: verapamil 2.5 mg/ml inj IV ONE (08:53)
[2024-05-09] MEDS ORDERED: iohexol 350 MG/ML 50ML vial IV ONE (08:53)
[2024-05-09] MEDS ORDERED: nitroGLYCERIN 500mcg/5mL D5W 5 ML IV ONE (08:54)
[2024-05-09] MEDS ORDERED: midazolam 1 mg/ML 2ml injection ONE ×3 (09:00→10:01)
[2024-05-09] MEDS ORDERED: fentaNYL/PF 50MCG/1 ML 2ML syringe ONE (09:00)
[2024-05-09] MEDS ORDERED: LIDOcaine 1% 30ml preserv. free vial ONE (09:59)
[2024-05-09] MEDS ORDERED: ondansetron/PF 4mg/2ml inj IV PRN (10:50)
[2024-05-09] MEDS ORDERED: HYDROcodone/acetaminophen 5mg/325mg tablet PO PRN (10:50)
[2024-05-09] MEDS ORDERED: HYDROcodone/acetaminophen 10/325mg tab PO PRN (10:50)
[2024-05-09] MEDS ORDERED: proCHLORperazine 10 MG/2 ml inj IV PRN (10:50)
== END 2024-05-09 13:55 | disposition home or self-care (01) ==
LOC: SSTAY O 06:26
PROVIDERS: ATTEND Internal Medicine Cardiovascular Disease
DX: R07.9 Chest pain, unspecified (principal); I10 Essential (primary) hypertension; E66.9 Obesity, unspecified; Z68.39 Body mass index [BMI] 39.0-39.9, adult
CPT/HCPCS: 36415; 80048; 83735; 85025; 85610; 93005; 93458; 99152; 99153; J1644; J2250; J3010; J3490; J7030; J7070; Q0163; Q9967; A6258; A6402; C1751; C1769; C1894

== ENCOUNTER 2024-05-23 06:23 | Outpatient (CLI) | payer MEDICAID ==
[~2024-05-23 06:23] MED LIST changes: -AMLO5TAB16 PO; -ATOR40TA71 PO; -CARV25TA PO; +CARV25TA2 PO; +EMPA10TA PO; +FAMO20TA8 PO; -LISI20TA28 PO; +SACU1TAB7 PO; +SEMA0.253 SQ
[2024-05-23] MEDS ORDERED: LIDOcaine 1% (10mg/ml) 2ml vial ONE (06:35)
[2024-05-23] MEDS ORDERED: GADOTERATE MEGLUMINE 7.5 MMOL/15 ML VIAL IV ONE (06:35)
[2024-05-23] MEDS ORDERED: iohexol 300 MG/1 ML 50ml polymer ONE (06:35)
[2024-05-23] MEDS ORDERED: LIDOcaine 1% 30ml preserv. free vial ONE (06:35)
== END 2024-05-23 23:59 | disposition home or self-care (01) ==
LOC: RAD 06:23
PROVIDERS: ATTEND Physician Assistant Surgical
DX: M75.41 Impingement syndrome of right shoulder (principal)
CPT/HCPCS: 23350; 73222; 77002; A9575; J3490; Q9967; 73040

== ENCOUNTER 2025-05-11 21:07 | Emergency (ER) | payer MEDICAID ==
[~2025-05-11] VITALS: Ht 180.3 cm; Wt 113.2 kg
[2025-05-11 21:23] VITALS: TEMP 97.9
[2025-05-11 22:00] LABS: MEAN PLATELET VOLUME 8.4 FL (7.4-10.4); RED CELL DISTRIBUTION WIDTH 14.8 % (11.5-14.5)
[2025-05-11 22:13] LABS: CREATININE 1.02 MG/DL (0.60-1.10); TOTAL CARBON DIOXIDE 24.7 MMOL/L (24-32); eCRCL 82 ML/MIN; eGFR 74 ML/MIN
[2025-05-11 22:17] LABS: LEUKOCYTE ESTERASE ,URINE NEGATIVE (Neg); NITRITES, URINE NEGATIVE (Neg); OCCULT BLOOD,URINE NEGATIVE (Neg)
[2025-05-11 22:22] LABS: UA COLLECTION TYPE CLN CATCH MIDSTREAM
[2025-05-11] MEDS: ketorolac trometh 15mg/ml vial 15 MG/ML ML IV STA (22:36)
--- NOTE | 2025-05-11 23:13 | Physician Documentation ---
History of Present Illness ~ Chief Complaint: Flank Pain Stated Complaint: FLANK PAIN Time Seen by MD: 23:12 Primary Medical Doctor: EDILMA WHARTON Mode of Arrival: POV HPI Patient presents to the emergency room with left-sided flank pain over the past few days. Symptoms getting worse. He has not taken anything for the pain. Denies dysuria. Bowel movements regular. No prior instances Medication Reconciliation Allergies: Coded Allergies: No Known Allergies (Unverified , 07/12/18) Scheduled Carvedilol (Carvedilol), 2 TAB PO BID, (Reported) Empagliflozin (Jardiance), 1 TAB PO DAILY, (Reported) Famotidine (Famotidine), 1 TAB PO DAILY, (Reported) Sacubitril/Valsartan (Entresto 49 mg-51 mg Tablet), 1 TAB PO BID, (Reported) Semaglutide (Wegovy), 0.25 MG SQ Q7D, (Reported) Spironolactone (Spironolactone), 0.5 TAB PO DAILY, (Reported) Scheduled PRN Nitroglycerin (Nitroglycerin), 0.4 MG SL for Chest pain Q5min PRNx3-call MD, (Reported) Past Medical History Past Medical History: Coronary Artery Disease, Anxiety, Depression Past Surgical History: angioplasty Alcohol Use: None Drug Use: none Lives In: Home Review of Systems All Other Systems at this time: Reviewed and Negative Physical Exam Physical Exam Vital Signs: Temperature: 97.9, Source: Temporal, Heart Rate: 70, Respiratory Rate: 18, BP: 118/70, Pulse Oximetry: 95, Weight: 113.200 Physical Exam General: Patient is awake, alert, oriented x4 in no acute distress and well appearing.~ Head: Normocephalic and atraumatic. Eyes: Conjunctival normal. EOMI. PERRL. ENT: Mucous membranes moist. Neck: Supple, trachea is midline. Chest: Clear to auscultation bilaterally without rales, rhonchi, or wheezes. There is no accessory muscle use or retractions. Cardiac: RRR without murmurs, gallops, or rubs. Abd: Soft, nondistended,TTP left flank. No rash Progress Results/Orders Results/Orders Orders - TUAN LOMBARDO MD Ct Abdomen Pelvis (05/11/25 23:40) Completed Orders - TUAN LOMBARDO MD Urinalysis, Cult If Indicated (05/11/25 21:18) Cbc/Diff (05/11/25 21:18) BMP (05/11/25 21:18) Lipase (05/11/25 21:18) CMP (05/11/25 21:18) Ketorolac Trometh 15mg/Ml Vial (Toradol (05/11/25 22:31) Ct Abdomen Pelvis (05/11/25 23:40) Ondansetron Disint. Tablet (Zofran Odt T (05/11/25 23:20) Hydrocodone/Apap 5/325mg Tab ([place] 5/32 (05/11/25 23:20) Medications Received in ER Medications (Trade) Dose Ordered Sig/Tony Route PRN Reason Start Time Stop Time Status Last Admin Dose Admin (Toradol injection) 15 mg ONCE STAT IV 05/11/25 22:31 05/11/25 22:33 DC 05/11/25 22:36 15 MG (Zofran ODT tablet) 8 mg ONCE ONCE PO 05/11/25 23:20 05/11/25 23:21 DC 05/11/25 23:28 8 MG ([place] 5/325mg tablet) 2 tab ONCE ONCE PO 05/11/25 23:20 05/11/25 23:21 DC 05/11/25 23:27 2 TAB Vital Signs 05/11/25 05/11/25 05/11/25 05/11/25 21:23 22:13 22:13 22:36 Temp 97.9 Pulse 83 70 Resp 18 18 18 18 B/P (MAP) 120/77 118/70 (86) Pulse Ox 97 95 05/11/25 05/12/25 05/12/25 05/12/25 23:27 00:20 00:22 00:22 Pulse 72 Resp 18 16 16 16 B/P (MAP) 126/79 (95) Pulse Ox 98 Laboratory Tests Test 05/11/25 21:43 05/11/25 22:10 White Blood Count 5.7 Red Blood Count 4.60 L Hemoglobin 14.7 Hematocrit 42.9 Mean Corpuscular Volume 93.1 Mean Corpuscular Hemoglobin 31.9 H Mean Corpuscular Hemoglobin Concent 34.3 Red Cell Distribution Width 14.8 H Platelet Count 169 Mean Platelet Volume 8.4 Neutrophils (%) (Auto) 51.8 Lymphocytes (%) (Auto) 33.2 Monocytes (%) (Auto) 9.5 Eosinophils (%) (Auto) 4.7 Basophils (%) (Auto) 0.8 Neutrophils # (Auto) 2.9 Lymphocytes # (Auto) 1.9 Monocytes # (Auto) 0.5 Eosinophils # (Auto) 0.3 Basophils # (Auto) 0.0 CBC Comment Sodium Level 140 Potassium Level 3.7 Chloride Level 106 Carbon Dioxide Level 24.7 Anion Gap 9 Blood Urea Nitrogen 20 H Creatinine 1.02 Estimated GFR/1.73 m2 74 BUN/Creatinine Ratio 19.6 Glucose Level 97 Calcium Level 8.6 Total Bilirubin 0.7 Aspartate Amino Transf (AST/SGOT) 25 Alanine Aminotransferase (ALT/SGPT) 39 Alkaline Phosphatase 82 Total Protein 7.0 Albumin 3.7 Globulin 3.3 Albumin/Globulin Ratio 1.1 Lipase 63 Chemistry Comments Urine Specimen Description Cln catch midstream Urine Color Yellow Urine Clarity Clear Urine pH 6.5 Urine Specific [place] 1.020 Urine Protein Negative Urine Glucose (UA) Negative Urine Ketones Negative Urine Occult Blood Negative Urine Nitrite Negative Urine Bilirubin Negative Urine Urobilinogen 2.0 H Urine Leukocyte Esterase Negative Urine Culture Indicated Not ind Volume Urine Centrifuged 10 ml Urine Comment Medical Decision Making Differential Dx:Considerations: Include: AAA, Aortic dissection, Bowel obstruction, Cholelithiasis, Cholangitis, Musculoskeletal pain, Pancreatitis, Pyelonephritis, Urinary obstruction, Urolithiasis, Urinary tract infection Departure Disposition: HOME / SELF CARE / HOMELESS Impression: Primary Impression: Flank pain Condition: Stable Discharge Instructions: Flank Pain, Adult, [id number] Referrals: NO PRIMARY CARE PROVIDER (PCP) Prescriptions Ondansetron 8mg ODT (Ondansetron Odt) 8 Mg Tab.rapdis 1 TAB PO Q6H for nausea/vomiting for 3 Days, #12 TAB 0 Refills Prov: TUAN LOMBARDO MD 05/12/25 Hydrocodone Bit/Acetaminophen 5/325 MG ([place] 5/325 MG) 5 Mg/325 Mg Tablet 1-2 TAB PO Q4-6 hours PRN for pain, #20 TAB Prov: TUAN LOMBARDO MD 05/12/25 Education Educated: Patient Educated regarding: diagnosis, treatment, need for follow up Signature Scribe Signature: no scribe Attestation: The note accurately reflects work and decisions made by me.Tuan Lombardo MD 05/12/25 00:30 TUAN LOMBARDO MD May 11, 2025 23:13
[2025-05-11] MEDS: HYDROcodone/acetaminophen 5mg/325mg tablet PO ONE (23:27)
[2025-05-11] MEDS: ondansetron 4mg rapidly disintigrating tab PO ONE (23:28)
--- NOTE | 2025-05-12 00:15 | RADIOLOGY REPORT ---
Exam: CT CT ABDOMEN PELVIS History: left flank pain Comparison Study: None Technique: Multidetector spiral CT of the abdomen was performed from lung bases to pubic symphysis. Imaging was performed without IV contrast. Axial, coronal and sagittal multiplanar reformats were ob tained from the axial data set by the technologist. Radiation Dose : 1. Abdomen/Pelvis: CTDIvol mGy, DLP mGy*cm. Findings: Evaluation of solid organs is limited due to lack of intravenous contrast use. Lung Bases: No abnormality demonstrated. Liver: Liver is normal in size. Probable small 15mm cyst in the right lobe of the liver. Gallbladder and Biliary Tree: Small calcified gallstones noted in the gallbladder. No evidence of brianda iary ductal dilatation. Spleen: No abnormality demonstrated. Pancreas: No abnormality demonstrated. Adrenal Glands: No abnormality demonstrated. Kidneys: No abnormality demonstrated. No renal calculus or hydroureteronephrosis. Bladder: Grossly unremarkable for degree of distention. Bowel: Stomach appears grossly unremarkable. No abnormally dilated or thick-walled loops of large or small bowel noted. Mild sigmoid diverticulosis without evidence of acute diverticulitis. Appendix christiano ears unremarkable. Ascites: Absent Lymphadenopathy: No evidence of lymphadenopathy. Abdominal Wall and Mesentery: Small fat containing umbilical hernia and bilateral fat containing ingu inal hernias. Vasculature: Unremarkable. Musculoskeletal: No aggressive bony lesions or fracture. IMPRESSION: No acute abdominal or pelvic findings. Mild sigmoid diverticulosis without evidence of acute divertic ulitis. Cholelithiasis Radiation optimization: All CT scans at this facility use at least one of these dose optimization chrystal hniques: automated exposure control mA and/or kV adjustment per patient size (includes targeted exam s where dose is matched to clinical indication) or iterative reconstruction.
[2025-05-12] MEDS ORDERED: HYDR-3965 PO (00:30)
[2025-05-12] MEDS ORDERED: ONDA-245 PO (00:30)
[2025-05-12 00:42] VITALS: BP 108/69; PULSE 78; RESP 18; O2SAT 98
== END 2025-05-12 00:44 | disposition home or self-care (01) ==
LOC: ER 21:08
DX: R10.9 Unspecified abdominal pain (principal); F41.9 Anxiety disorder, unspecified; F32.A Depression, unspecified; I25.10 Atherosclerotic heart disease of native coronary artery without angina pectoris
CPT/HCPCS: 36415; 74176; 80053; 81003; 83690; 85025; 96374; 99285; J1885